=== PATIENT | female | born 1980 | race Caucasian/White ===

== ENCOUNTER 2018-01-08 03:31 | Emergency (ER) | payer MEDICAID ==
[2018-01-08] MEDS: KETOROLAC 30 MG INJ IM (09:11)
== END 2018-01-08 10:33 | disposition home or self-care (01) ==
LOC: FTE 03:31
DX: M54.2 Cervicalgia (principal); M79.602 Pain in left arm
CPT/HCPCS: 72040; 81025; 93005; 96372; 99284-25